=== PATIENT | male | born 1960 | race Caucasian/White ===

== ENCOUNTER 2016-09-29 17:50 | Emergency (ER) | payer OTHER ==
[2016-09-29 18:38] VITALS: BP 108/77
--- NOTE | 2016-09-29 18:49 | UC ---
HPI Wound/Suture Re-check - HPI Summary HPI Summary: The patient comes in today for: 1. Left lower leg laceration: Onset: About five weeks ago. Palliative/provocative: Touching it makes it worse. Quality: Stinging. Region: Lower left leg. Severity: 210 Time: Constant. Associated symptoms: Event: He was jumping on a box and scraped it. There was a "pretty good gash " but he did not see any one for it and inspected it every day and antibiotic ointment. But, it has turned red and stinging more in the last few days. Initially, there was a "big bruise." It was puffed up to begin with and since then it has gotten smaller, but more red. There is no drainage. Tenderness is about the same. Redness is increased slightly. He was putting antibiotic ointment (Neosporin), but not for the last few weeks. * - History Of Current Complaint Chief Complaint: UC Stated Complaint: CASTANEDA LAC Time Seen by Provider: 09/29/16 18:30 Hx Obtained From: Patient - Allergies/Home Medications Allergies/Adverse Reactions: Allergies Allergy/AdvReac Type Severity Reaction Status Date / Time Penicillins Allergy Unknown Rash Verified 12/25/13 20:50 PMH/Surg Hx/FS Hx/Imm Hx Previously Healthy: No - BPH. Endocrine History Of: Denies: Diabetes, Thyroid Disease, Hyperthyroidism, Hypothyroidism, Dyslipidemia Cardiovascular History Of: Denies: Cardiac Disorders, Hypertension, Pacemaker/ICD, Myocardial Infarction , Congestive Heart Failure, Atrial Fibrillation, Deep Vein Thrombosis, Bleeding Disorders Respiratory History Of: Denies: COPD, Asthma, Bronchitis, Pneumonia, Pulmonary Embolism GI/ History Of: Denies: Gastroesophageal Reflux, Ulcer, Gastrointestinal Bleed, Gall Bladder Disease, Kidney Stones, Diverticulitis, Renal Disease, Urosepsis Neurological History Of: Denies: TIA, CVA, Dementia, Seizures, Migraine Psychological History Of: Denies: Anxiety, Depression, Bipolar Disorder, Schizophrenia, Post Traumatic Stress Disorder Cancer History Of: Denies: Lung Cancer, Colorectal Cancer, Breast Cancer, Prostate Cancer, Cervical Cancer Other History Of: Hepatitis C - Treated twice with the last test was successful. Negative For: HIV, Hepatitis B, Anticoagulant Therapy - Surgical History Surgical History: Yes Surgery Procedure, Year, and Place: TONSILECTOMY; - Family History Known Family History: Positive: Cardiac Disease Negative: Hypertension - Social History Occupation: Employed Full-time Alcohol Use: None Substance Use Type: None Smoking Status (MU): Never Smoked Tobacco - Immunization History Most Recent Influenza Vaccination: none Review of Systems Constitutional: Negative Skin: Rash Eyes: Negative ENT: Negative Respiratory: Negative Cardiovascular: Negative Gastrointestinal: Negative Genitourinary: Negative All Other Systems Reviewed And Are Negative: Yes Physical Exam Triage Information Reviewed: Yes Appearance: Well-Appearing, No Pain Distress, Well-Nourished Vital Signs: Initial Vital Signs Temp 97.8 F 09/29/16 18:32 Pulse 78 09/29/16 18:32 Resp 16 09/29/16 18:32 BP 108/77 09/29/16 18:32 Pulse Ox 97 09/29/16 18:32 Vital Signs Reviewed: Yes Eyes: Positive: Conjunctiva Clear. Negative: Discharge ENT: Positive: Hearing grossly normal. Negative: Pharyngeal erythema, Nasal congestion, TMs normal, TM bulging, TM dull, TM red, Tonsillar swelling, Tonsillar exudate Dental: Negative: Gross Decay/Caries @, Dental Fracture @ Neck: Positive: Supple, Nontender, No Lymphadenopathy. Negative: Nuchal Rigidity Respiratory: Positive: Lungs clear, No respiratory distress, No accessory muscle use. Negative: Crackles, Wheezing Cardiovascular: Positive: RRR, No Murmur Abdomen Description: Positive: Nontender, No Organomegaly, Soft. Negative: Distended, Guarding Musculoskeletal: Positive: Strength Intact, ROM Intact Neurological: Positive: Alert, Muscle Tone Normal Psychological: Positive: Age Appropriate Behavior, Consolable Skin: Positive: Other - He has an indurated erythematous, non-discharging lesions about 3 cm x 1.5 cm of the anterior right skin. There were 3 small follicular pustules around this wound. Cultures taken. Course/Dx - Course Course Of Treatment: Telfa and Coban applied. - Differential Dx - Laceration/Wound Differential Diagnoses: Cellulitis, Healing Wound, Hematoma Provider Diagnoses: Left lower anterior leg heaing wound with possible cellulitis/folliculitis Discharge - Discharge Plan Condition: Stable Disposition: HOME Patient Education Materials: Cellulitis (ED), Folliculitis (ED) Referrals: Jona Small MD [Primary Care Provider] - 1 Week (Please see your primary care provider in a week to see how well you are doing. If you get worse, please be seen sooner in the ER or through us.)
[2016-09-29] MEDS ORDERED: Tetan/Diph/Pertus SYR(Tdap)* 0.5 ML SYR(BOOSTRIX) use SYR IM ONE ×2 (19:14→19:48)
[2016-09-29] MEDS ORDERED: Azithromycin TAB* 250 MG PO ONE (19:18)
[2016-09-29] MEDS ORDERED: Sulfamethox/Trimethoprim DS 800/160* TAB PO ONE (19:19)
[2016-09-29] MEDS ORDERED: Sulfamethox/Trimethoprim DS 800/160* TAB ONE (19:47)
== END 2016-09-29 19:59 | disposition home or self-care (01) ==
LOC: UCEAST 17:50
DX: S81.812A Laceration without foreign body, left lower leg, initial encounter (principal); L08.9 Local infection of the skin and subcutaneous tissue, unspecified; W45.8XXA Other foreign body or object entering through skin, initial encounter; Y93.39 Activity, other involving climbing, rappelling and jumping off; Y92.9 Unspecified place or not applicable; Z88.0 Allergy status to penicillin; Z23 Encounter for immunization
CPT/HCPCS: 87070; 87077; 87186; 87205; 90715; 96372; 99212; A9270-GY; G0463

== ENCOUNTER 2017-09-27 17:53 | Emergency (ER) | payer OTHER ==
[2017-09-27 18:28] VITALS: BP 109/59
[2017-09-27] MEDS ORDERED: Tetan/Diph/Pertus SYR(Tdap)* 0.5 ML SYR(BOOSTRIX) use SYR IM ONE (19:30)
[2017-09-27] MEDS ORDERED: Bacitracin OINTMENT* 0.5% 0.5 oz TUBE TOPICAL ONE (19:30)
--- NOTE | 2017-11-28 11:14 | UC ---
Laceration HPI - HPI Summary HPI Summary: Patient states he was at the gym this morning when he jumped on a wooden box and missed, scrapping his right singh on the verge of the box. Denies fall or pain anywhere else in the body. Patient is allergic to PCN. c/o initial bleeding which has subsided since the accident. - History Of Current Complaint Chief Complaint: UCLaceration Stated Complaint: LACERATION ON LEG Time Seen by Provider: 09/27/17 19:20 Hx Obtained From: Patient Laceration Location: Generalized - right leg, singh Mechanism Of Injury: Blunt Trauma Onset/Duration: Sudden Onset Severity: Mild Pain Intensity: 3 Pain Scale Used: 0-10 Numeric Aggravating Factors: Nothing Full Body (No Head): 1 - superficial jagged wound on right leg, with minimal bleeding and surrounding perifollicular echymosis - Allergies/Home Medications Allergies/Adverse Reactions: Allergies Allergy/AdvReac Type Severity Reaction Status Date / Time MS Penicillins [Penicillins] Allergy Unknown Rash Verified 09/27/17 18:28 PMH/Surg Hx/FS Hx/Imm Hx Previously Healthy: Yes Other GI/ History: BPH Other History Of: Hepatitis C - Treated twice with the last test was successful. Negative For: HIV, Hepatitis B, Anticoagulant Therapy - Surgical History Surgical History: Yes Surgery Procedure, Year, and Place: TONSILECTOMY; - Family History Known Family History: Positive: Cardiac Disease Negative: Hypertension - Social History Alcohol Use: None Substance Use Type: None Smoking Status (MU): Never Smoked Tobacco - Immunization History Most Recent Influenza Vaccination: none Most Recent Tetanus Shot: unknown Review of Systems Musculoskeletal: Myalgia All Other Systems Reviewed And Are Negative: Yes Physical Exam Triage Information Reviewed: Yes Appearance: Well-Appearing, No Pain Distress Vital Signs: Initial Vital Signs Temp 98.2 F 09/27/17 18:25 Pulse 68 09/27/17 18:25 Resp 12 09/27/17 18:25 BP 109/59 09/27/17 18:25 Pulse Ox 98 09/27/17 18:25 Vital Signs Reviewed: Yes Neck: Positive: Supple, Nontender Respiratory: Positive: Chest non-tender, Lungs clear, Normal breath sounds Cardiovascular: Positive: Pulses Normal, Brisk Capillary Refill Abdomen Description: Positive: Nontender Bowel Sounds: Positive: Present Musculoskeletal Exam: Normal Musculoskeletal: Positive: Strength Intact, ROM Intact, No Edema Skin Exam: Other - escoriation with jagged borders on right singh aproximately 4.5 inches in length. Laceration Course/Dx - Course/Dx Course Of Treatment: Wound was dressed and instructions for wound care given to patient. Start Bactrim DS po BID as prescribed to prevent infection. F/u PCP, tylenol as needed for pain. - Differential Dx - Laceration/Wound Provider Diagnoses: Escoriation right Leg Discharge - Sign-Out/Discharge Documenting (check all that apply): Discharge - Discharge Plan Condition: Stable Disposition: HOME Prescriptions: Sulfamethox/Trimethoprim DS* [Bactrim DS 800/160 TAB*] 1 tab PO DAILY 7 Days # 14 tab Patient Education Materials: Abrasion (ED) Referrals: Jona Small MD [Primary Care Provider] - - Billing Disposition and Condition Condition: STABLE Disposition: HOME
== END 2017-09-27 20:33 | disposition home or self-care (01) ==
LOC: UCEAST 17:53
DX: S81.811A Laceration without foreign body, right lower leg, initial encounter (principal); W22.8XXA Striking against or struck by other objects, initial encounter; Y93.B9 Activity, other involving muscle strengthening exercises; Y92.39 Other specified sports and athletic area as the place of occurrence of the external cause; Z23 Encounter for immunization; M79.1 Myalgia; N40.0 Benign prostatic hyperplasia without lower urinary tract symptoms; Z86.19 Personal history of other infectious and parasitic diseases; Z88.0 Allergy status to penicillin
CPT/HCPCS: 90715; 99212; A9270-GY; G0463

== ENCOUNTER 2018-07-31 09:13 | Emergency (ER) | payer OTHER ==
[2018-07-31 09:46] VITALS: BP 119/73
--- NOTE | 2018-07-31 10:21 | UC ---
Respiratory Complaint HPI - HPI Summary HPI Summary: 58-year-old male comes in to clinic today with a chief complaint of cough and chest congestion with wheezing for 3 weeks. Patient is not a smoker. Condition started out with upper respiratory tract infection symptoms with runny nose sore throat and cough. Moved down into his chest. He tried over-the -counter medications to help some but then the symptoms return. No recent fevers. - History of Current Complaint Chief Complaint: UCRespiratory Stated Complaint: COUGH Time Seen by Provider: 07/31/18 09:55 Pain Intensity: 0 - Allergies/Home Medications Allergies/Adverse Reactions: Allergies Allergy/AdvReac Type Severity Reaction Status Date / Time Penicillins Allergy Rash Verified 07/31/18 09:46 Home Medications: Home Medications guaiFENesin [Mucinex] 600 mg PO 07/31/18 [History] PMH/Surg Hx/FS Hx/Imm Hx Previously Healthy: Yes Other GI/ History: BPH Other History Of: Hepatitis C - Treated twice with the last test was successful. Negative For: HIV, Hepatitis B, Anticoagulant Therapy - Surgical History Surgical History: Yes Surgery Procedure, Year, and Place: TONSILECTOMY; - Family History Known Family History: Positive: Cardiac Disease, Diabetes Negative: Hypertension - Social History Alcohol Use: None Substance Use Type: None Smoking Status (MU): Never Smoked Tobacco - Immunization History Most Recent Influenza Vaccination: none Most Recent Tetanus Shot: unknown Review of Systems All Other Systems Reviewed And Are Negative: Yes Constitutional: Positive: Negative Skin: Positive: Negative Eyes: Positive: Negative ENT: Positive: Sore Throat, Nasal Discharge, Sinus Congestion Respiratory: Positive: Cough, Other - WHEEZING Cardiovascular: Positive: Negative Gastrointestinal: Positive: Negative Motor: Positive: Negative Neurovascular: Positive: Negative Musculoskeletal: Positive: Negative Neurological: Positive: Negative Psychological: Positive: Negative Is Patient Immunocompromised?: No Physical Exam Triage Information Reviewed: Yes Appearance: Well-Appearing, No Pain Distress, Well-Nourished Vital Signs: Initial Vital Signs Temp 97.3 F 07/31/18 09:44 Pulse 84 07/31/18 09:44 Resp 18 07/31/18 09:44 BP 119/73 07/31/18 09:44 Pulse Ox 98 07/31/18 09:44 Vital Signs Reviewed: Yes Eye Exam: Normal Eyes: Positive: Conjunctiva Clear ENT Exam: Normal ENT: Positive: Pharynx normal, TMs normal Neck exam: Normal Neck: Positive: Supple Respiratory: Positive: No respiratory distress, No accessory muscle use, Rhonchi Cardiovascular: Positive: RRR Musculoskeletal Exam: Normal Musculoskeletal: Positive: Strength Intact, ROM Intact, No Edema Neurological Exam: Normal Neurological: Positive: Alert, Muscle Tone Normal Psychological Exam: Normal Psychological: Positive: Age Appropriate Behavior Skin Exam: Normal UC Diagnostic Evaluation - Laboratory O2 Sat by Pulse Oximetry: 98 Respiratory Course/Dx - Differential Dx/Diagnosis Provider Diagnoses: BRONCHITIS WITH BRONCHOSPASM Discharge - Sign-Out/Discharge Documenting (check all that apply): Patient Departure All imaging exams completed and their final reports reviewed: No Studies - Discharge Plan Condition: Stable Disposition: HOME Prescriptions: Albuterol HFA INHALER* [Ventolin HFA Inhaler*] 2 puff INH Q4H PRN #1 mdi PRN Reason: Wheezing Azithromyxin MELODY (NF) [Z-Melody (Zithromax) 250 mg tabs #6] 2 tab PO .TODAY, THEN 1 DAILY #6 tab Patient Education Materials: Acute Bronchitis (ED), Bronchospasm (ED) Referrals: Jona Small MD [Primary Care Provider] - Additional Instructions: FOLLOW UP WITH YOUR DOCTOR IF NOT COMPLETELY IMPROVED. GET RECHECKED FOR ANY WORSENING OF YOUR CONDITION OR QUESTIONS OR CONCERNS. - Billing Disposition and Condition Condition: STABLE Disposition: Home
== END 2018-07-31 10:25 | disposition home or self-care (01) ==
LOC: UCEAST 09:13
DX: J20.9 Acute bronchitis, unspecified (principal); Z88.0 Allergy status to penicillin
CPT/HCPCS: 99212; G0463

== ENCOUNTER 2018-12-17 21:35 | Emergency (ER) | payer OTHER ==
[2018-12-17 22:14] VITALS: BP 103/66
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
== END 2018-12-17 22:30 | disposition home or self-care (01) ==
LOC: UCEAST 21:35
DX: S89.92XA Unspecified injury of left lower leg, initial encounter (principal); V28.0XXA Motorcycle driver injured in noncollision transport accident in nontraffic accident, initial encounter; Y92.9 Unspecified place or not applicable; Z88.0 Allergy status to penicillin
CPT/HCPCS: 99212; G0463

== ENCOUNTER 2019-08-30 13:54 | Emergency (ER) | payer OTHER ==
--- NOTE | 2019-08-30 14:34 | UC ---
Knee Pain HPI - HPI Summary HPI Summary: 59 year old male with PMH + for [place]aila tree disease with c/o- - open wound to left singh that started on Friday after patient was working out , doing box jumps. + bleeding, since has had continued bleeding soaking dressings and leaking on bed sheets. No pain with walking, no swelling, + bruising. no fever,chills. no ankle pain. no other wounds, sores. - History of Current Complaint Stated Complaint: KNEE INJURY Time Seen by Provider: 08/30/19 14:32 Hx Obtained From: Patient Onset/Duration: Sudden Onset, Lasting Days - since Friday Severity Initially: Mild Severity Currently: None Character: Aching Associated Signs And Symptoms: Positive: Swelling Able to Bear Weight: Yes - Allergies/Home Medications Allergies/Adverse Reactions: Allergies Allergy/AdvReac Type Severity Reaction Status Date / Time Penicillins Allergy Rash Verified 12/17/18 22:14 PMH/Surg Hx/FS Hx/Imm Hx Previously Healthy: Yes Other History Of: Hepatitis C - Treated twice with the last test was successful. Negative For: HIV, Hepatitis B, Anticoagulant Therapy - Surgical History Surgical History: Yes Surgery Procedure, Year, and Place: TONSILLECTOMY - Family History Known Family History: Positive: Cardiac Disease, Diabetes Negative: Hypertension - Social History Alcohol Use: None Substance Use Type: None Smoking Status (MU): Never Smoked Tobacco - Immunization History Most Recent Influenza Vaccination: none Most Recent Tetanus Shot: 09/29/16 Review of Systems All Other Systems Reviewed And Are Negative: Yes Constitutional: Positive: Negative Skin: Positive: Other - bleeding Musculoskeletal: Positive: Edema Is Patient Immunocompromised?: No Physical Exam Triage Information Reviewed: Yes Appearance: Well-Appearing, No Pain Distress, Well-Nourished Vital Signs Reviewed: Yes Eyes: Positive: Conjunctiva Clear Musculoskeletal: Positive: Strength Intact, Edema @ - minimal distal anterior singh. Negative: ROM Intact - ankle, knee L sided Neurological: Positive: Alert, Other: - SITLT L leg PT/ DP pulse 2+ L Psychological Exam: Normal Psychological: Positive: Normal Response To Family Skin: Positive: Other - 3cm curved laceration with hematoma beneath on distal anterior singh, small superfical 3blood vessels with + oozing, cauterized without Knee Pain Course/Dx - Course Course Of Treatment: - Unable to close laceration due to time at occurrence- should be done within 12 hours - Keep dressing on for 24 hours, afterwards OK to shower, clean area. - FOllow up with continued bleeding, redness, drainage, increased pain - Bactrim DS twice daily x 5 days for prophylaxis antibiotics. - Tylenol as needed for pain - Differential Dx/Diagnosis Differential Diagnosis/HQI/PQRI: Infection, Sprain, Strain Provider Diagnosis: Laceration Discharge ED - Sign-Out/Discharge Documenting (check all that apply): Patient Departure All imaging exams completed and their final reports reviewed: No Studies - Discharge Plan Condition: Good Disposition: HOME Prescriptions: Sulfamethox/Trimethoprim DS* [Bactrim DS 800/160 TAB*] 1 tab PO BID #10 tab Patient Education Materials: Laceration Without Closure (ED) Referrals: Jona Small MD [Primary Care Provider] - Additional Instructions: - Unable to close laceration due to time at occurrence- should be done within 12 hours - Keep dressing on for 24 hours, afterwards OK to shower, clean area. - FOllow up with continued bleeding, redness, drainage, increased pain - Bactrim DS twice daily x 5 days for prophylaxis antibiotics. - Tylenol as needed for pain - Billing Disposition and Condition Condition: GOOD Disposition: Home
[2019-08-30 14:39] VITALS: BP 104/59
[2019-08-30] MEDS ORDERED: Silver Nitrate/Potassium Nitr* 1 PAK (1 PAK PER PATIENT) TOPICAL ONE (14:51)
== END 2019-08-30 15:23 | disposition home or self-care (01) ==
LOC: UCEAST 13:54
DX: S81.812A Laceration without foreign body, left lower leg, initial encounter (principal); Z88.0 Allergy status to penicillin; X58.XXXA Exposure to other specified factors, initial encounter; Y93.39 Activity, other involving climbing, rappelling and jumping off; Y92.9 Unspecified place or not applicable
CPT/HCPCS: 99212; A9270-GY; G0463